=== PATIENT | male | born 1940 | race Caucasian/White ===

== ENCOUNTER 2017-09-18 19:45 | Inpatient (IN) ==
[2017-09-18] MEDS ORDERED: NS 1,000 ML IV ONE ×2 (19:59→22:06)
[2017-09-18] MEDS ORDERED: ACETAMINOPHEN 500 MG TABLET PO ONE (20:00)
[2017-09-18] MEDS: SALINE FLUSH 10ml SYRINGE IVF PRN (20:11)
--- NOTE | 2017-09-18 20:35 | Emergency Department Report ---
Male Urogenital HPI - General Chief complaint: Urogenital-Male <Alejandra Limon 09/18/17 20:36> Stated complaint: fever,frequent urination <Alejandra Limon 09/18/17 20: 36> Time Seen by Provider: 09/18/17 19:55 <Alejandra Limon 09/18/17 20:36> Source: patient, family <Alejandra Limon 09/18/17 20:36> Mode of arrival: ambulatory <Alejandra Limon 09/18/17 20:36> Limitations: no limitations <Alejandra Limon 09/18/17 20:36> - History of Present Illness HPI Narrative: Pt presents with a general complaint of not feeling well and body aches that started this afternoon. His temperature was about 100 and then went to 102 about an hour later. PT has not taken any medications for pain or fever. He denies cough, congestion, chest pain, nausea, vomiting, diarrhea, sore throat or INGRAM. 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 <Alejandra Limon 09/18/17 20:36> - Related Data Home Medications Medication Instructions Recorded Confirmed Tamsulosin HCl [Flomax] 0.4 mg PO DAILY #0 06/11/09/18/17 Arformoterol Neb [Brovana Neb] 15 mcg INH BID 10/27/16 09/18/17 Budesonide 1 dose INH DAILY 09/18/17 09/18/17 Umeclidinium Otto [Incruse 1 dose INH DAILY 09/18/17 09/18/17 Ellipta] <Alejandra Limon 09/18/17 20:36> Allergies Allergy/AdvReac Type Severity Reaction Status Date / Time No Known Drug Allergies Allergy Unknown Verified 09/18/17 20:35 <Alejandra Limon 09/18/17 20:36> Review of Systems All systems: reviewed and negative except as stated <Alejandra Limon 20:36> Constitutional: Reports: as per HPI <Alejandra Limon 09/18/17 20:36> Cardiovascular: Reports: as per HPI <Alejandra Limon 09/18/17 20:36> Respiratory: Reports: as per HPI <Alejandra Limon 09/18/17 20:36> Gastrointestinal: Reports: as per HPI <Alejandra Limon 09/18/17 20:36> Genitourinary: Reports: as per HPI <Alejandra Limon 09/18/17 20:36> Musculoskeletal: Reports: as per HPI <Alejandra Limon 09/18/17 20:36> Neurological: Reports: as per HPI <Alejandra Limon 09/18/17 20:36> [facility] Patient Stated Medical History Cataracts Yes Asthma Yes Chronic Obstructive Pulmonary Yes Disease (COPD) Gastroesophageal Reflux No Disease Hx Benign Prostatic Yes Hyperplasia Anesthesia Reactions No Clinic Medical History COPD (chronic obstructive pulmonary disease) (Acute Medical) Colon polyps (Acute Medical) <Alejandra Limon 09/18/17 20:36> Surgical History: 1. Total colonoscopy on 04/23/[address] Ivan at [facility] at [place], [place]. Postoperative diagnoses were positive family history of colon carcinoma, desire for screening for colon and rectal carcinoma and internal and external hemorrhoids. The father of this patient did have colon carcinoma. 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 <Alejandra Limon 20:36> Does patient use chewing tobacco?: No <Alejandra Limon 09/18/17 20:36> Physical Exam - Limitations Limitations: no limitations <Alejandra Limon 09/18/17 20:36> - General General appearance: alert, in no apparent distress <Alejandra Limon 09/18 20:36> - Normal Exams: Head:: Normocephalic without trauma <Alejandra Limon 09/18/17 20:36> Chest/Respirations:: Clear all ku, with good airflow <Alejandra Limon 09/18/17 20:36> Cardiovascular:: Regular rate and rhythm, without murmur or gallop, Pulses 2+ all extremities, capillary refill, <2 seconds all extremities <Alejandra Limon 09/18/17 20:36> Abdomen:: Bowel sounds positive, soft, non-tender, non-distended <Alejandra Limon 09/18/17 20:36> Musculoskeletal:: No tenderness, or deformity noted, good range of motion, all extremities <Alejandra Limon 09/18/17 20:36> Integumentary:: No rashes <Alejandra Limon 09/18/17 20:36> Neurological:: Patient is alert, and oriented, cranial nerves, motor/sensory/ cerebellar, exams w/o gross deficits, to observation <Alejandra Limon 20:36> Psychiatric:: Patient exhibits, appropriate attention, emotion and affect < Alejandra Limon 09/18/17 20:36> Course Vital Signs Temperature 102 F H 09/18/17 19:47 Pulse Rate 114 H 09/18/17 19:47 Respiratory Rate 18 09/18/17 19:47 Blood Pressure 124/74 09/18/17 19:47 Pulse Oximetry 94 09/18/17 19:47 Temperature 99.8 F 09/18/17 21:00 Pulse Rate 114 H 09/18/17 19:47 Respiratory Rate 18 09/18/17 19:47 Blood Pressure 124/74 09/18/17 19:47 Pulse Oximetry 94 09/18/17 19:47 <Alejandra Limon 09/18/17 20:36> Urogenital-Male - MDM Narrative Medical decision making narrative: Labs reviewed. Rocephin initiated. Pt has also received 2 L NS bolus. Pulse resolving however BP remains around 100 SBP even after fluids. Lactate normal. Given VS, in addition to UTI pt to be admitted for further care. Diagnosis and plan discussed with pt and family who voice understanding. <Alejandra Limon Joan - 09/18/17 23:11> Patient is discussed with Dr. Terrell Lowery, we will admit for UTI with sepsis, inpatient no telemetry <OwenKyle H - 09/18/17 22:59> - Differential Diagnosis Likely: urinary tract infection, urethritis, epididymitis, prostatitis, acute retention of urine <Marissa Limonlouise Franco - 09/18/17 20:36> - Lab Data Result diagrams: 09/18/17 20:12 09/18/17 20:12 <Alejandra Limon Joan - 09/18/17 20:36> Lab Results 09/18/17 09/18/17 09/18/17 Range/Units 20:12 20:12 20:12 WBC 18.4 H (4.5-11.0) T/MM3 RBC 4.69 (4.50-5.90) M/MM3 Hgb 15.2 (13.5-17.5) GM/DL Hct 45.6 (41-53) % MCV 97.2 (80-100) UM3 MCH 32.4 (26-34) UUG MCHC 33.3 (31-37) GM/DL RDW Std Deviation 47.3 (36.9-50.2) FL Plt Count 241 (130-400) T/MM3 MPV 10.3 (9.4-12.4) UM3 Immature Gran % (Auto) Not performed Neut % (Auto) Not performed Lymph % (Auto) Not performed Stephens % (Auto) Not performed Eos % (Auto) Not performed Baso % (Auto) Not performed Neut # (Auto) Not performed Lymph # (Auto) Not performed Stephens # (Auto) Not performed Eos # (Auto) Not performed Baso # (Auto) Not performed Abs Immat Gran (auto) Not performed Neutrophils % (Manual) 83.0 H (33-66) % Band Neutrophils % 3.0 (0-6) % Lymphocytes % (Manual) 6.0 L (23-45) % Monocytes % (Manual) 6.0 (0-9.0) % Eosinophils % (Manual) 1.0 (0-4) % Basophils % (Manual) 1.0 (0-2) % Neutrophils # (Manual) 15.3 H (1.8-7.7) T/MM3 Band Neutrophils # 0.6 T/MM3 Lymphocytes # (Manual) 1.1 (1-4.8) T/MM3 Monocytes # (Manual) 1.1 H (0-0.8) T/MM3 Eosinophils # (Manual) 0.2 (0-0.5) T/MM3 Basophils # (Manual) 0.2 (0-0.2) T/MM3 RBC Morph Comment Normal Turbidity < 20 (0-20) Sodium 142 (134-144) MEQ/L Potassium 3.9 (3.6-5) MEQ/L Chloride 107 (98-107) MEQ/L Carbon Dioxide 24 (22-30) MEQ/L Anion Gap 11 (5-15) meq/L BUN 13.0 (9-20) MG/DL Creatinine 0.8 (0.8-1.5) mg/dL GFR Calculation 94 BUN/Creatinine Ratio 16 (6-26) RATIO Glucose 108 (75-110) MG/DL Calculated Osmolality 274 (261-280) MOSM/KG Calcium 9.1 (8.4-10.2) MG/DL Total Bilirubin 0.50 (0.20-1.30) MG/DL Conjugated Bilirubin 0.00 (0.00-0.30) mg/dL Unconjugated Bilirubin 0.20 (0.00-1.1) mg/dL Icterus Index < 2 (0-7) AST 14 L (17-59) U/L ALT 13 (1-50) U/L Alkaline Phosphatase 98 (38-126) U/L Total Protein 7.2 (6.3-8.2) g/dL Albumin 4.1 (3.5-5.0) g/dL Globulin 3.1 (2.4-3.6) G/DL Albumin/Globulin Ratio 1.3 (1.1-2.2) RATIO Plasma Lactate 1.2 (0.6-2.2) MMOL/L Specimen Hemolysis < 15 (0-25) Ur Collection Type Urine, void-cc/notcc Urine Color Luna (YELLOW) Urine Clarity Cloudy Urine pH 8.5 A (5.0-8.0) Ur Specific [place] 1.020 (1.015-1.025) Urine Protein 2+ A (NEGATIVE) Urine Glucose (UA) Negative (NEGATIVE) Urine Ketones Negative (NEGATIVE) Urine Occult Blood 3+ A (NEGATIVE) Urine Nitrate Positive A (NEGATIVE) Urine Bilirubin Negative (NEGATIVE) Urine Urobilinogen 0.2 (NORMAL) EU/DL Ur Leukocyte Esterase 1+ A (NEGATIVE) Urine RBC 50-200 H (0-3) /HPF Urine WBC 10-20 H (0-5) /HPF Ur Squamous Epith Cells 0-5 Amorphous Sediment Many Urine Bacteria 3+ H (NEGATIVE) Ur Culture Indicated? Cult reflexed &setup 09/18/17 Range/Units 21:40 WBC (4.5-11.0) T/MM3 RBC (4.50-5.90) M/MM3 Hgb (13.5-17.5) GM/DL Hct (41-53) % MCV (80-100) UM3 MCH (26-34) UUG MCHC (31-37) GM/DL RDW Std Deviation (36.9-50.2) FL Plt Count (130-400) T/MM3 MPV (9.4-12.4) UM3 Immature Gran % (Auto) Neut % (Auto) Lymph % (Auto) Stephens % (Auto) Eos % (Auto) Baso % (Auto) Neut # (Auto) Lymph # (Auto) Stephens # (Auto) Eos # (Auto) Baso # (Auto) Abs Immat Gran (auto) Neutrophils % (Manual) (33-66) % Band Neutrophils % (0-6) % Lymphocytes % (Manual) (23-45) % Monocytes % (Manual) (0-9.0) % Eosinophils % (Manual) (0-4) % Basophils % (Manual) (0-2) % Neutrophils # (Manual) (1.8-7.7) T/MM3 Band Neutrophils # T/MM3 Lymphocytes # (Manual) (1-4.8) T/MM3 Monocytes # (Manual) (0-0.8) T/MM3 Eosinophils # (Manual) (0-0.5) T/MM3 Basophils # (Manual) (0-0.2) T/MM3 RBC Morph Comment Turbidity (0-20) Sodium (134-144) MEQ/L Potassium (3.6-5) MEQ/L Chloride (98-107) MEQ/L Carbon Dioxide (22-30) MEQ/L Anion Gap (5-15) meq/L BUN (9-20) MG/DL Creatinine (0.8-1.5) mg/dL GFR Calculation BUN/Creatinine Ratio (6-26) RATIO Glucose (75-110) MG/DL Calculated Osmolality (261-280) MOSM/KG Calcium (8.4-10.2) MG/DL Total Bilirubin (0.20-1.30) MG/DL Conjugated Bilirubin (0.00-0.30) mg/dL Unconjugated Bilirubin (0.00-1.1) mg/dL Icterus Index (0-7) AST (17-59) U/L ALT (1-50) U/L Alkaline Phosphatase (38-126) U/L Total Protein (6.3-8.2) g/dL Albumin (3.5-5.0) g/dL Globulin (2.4-3.6) G/DL Albumin/Globulin Ratio (1.1-2.2) RATIO Plasma Lactate 0.8 (0.6-2.2) MMOL/L Specimen Hemolysis (0-25) Ur Collection Type Urine Color (YELLOW) Urine Clarity Urine pH (5.0-8.0) Ur Specific [place] (1.015-1.025) Urine Protein (NEGATIVE) Urine Glucose (UA) (NEGATIVE) Urine Ketones (NEGATIVE) Urine Occult Blood (NEGATIVE) Urine Nitrate (NEGATIVE) Urine Bilirubin (NEGATIVE) Urine Urobilinogen (NORMAL) EU/DL Ur Leukocyte Esterase (NEGATIVE) Urine RBC (0-3) /HPF Urine WBC (0-5) /HPF Ur Squamous Epith Cells Amorphous Sediment Urine Bacteria (NEGATIVE) Ur Culture Indicated? <Alejandra Limon 09/18/17 20:36> Disposition Clinical Impression: UTI (urinary tract infection) Qualifiers: Urinary tract infection type: acute cystitis Hematuria presence: with hematuria Qualified Code(s): N30.01 - Acute cystitis with hematuria Sepsis Qualifiers: Sepsis type: sepsis due to unspecified organism Qualified Code(s): A41.9 - Sepsis, unspecified organism <Alejandra Limon 09/18/17 23:11> Disposition: 02 To [facility] [place] <Alejandra Limon 09/18/17 23:11> Condition: Improved <Alejandra Limon 09/18/17 23:11> Instructions: <Alejandra Limon 09/18/17 20:36> Prescriptions: No Action Arformoterol Neb [Brovana Neb] 15 mcg INH BID Budesonide 1 dose INH DAILY Umeclidinium Otto [Incruse Ellipta] 1 dose INH DAILY Tamsulosin HCl [Flomax] 0.4 mg PO DAILY #0 <Alejandra Limon 09/18/17 20:36> Referrals: Krish Gil II, MD [Primary Care Provider] - <Alejandra Limon 09/18/17 20:36> Forms: <Alejandra Limon 09/18/17 20:36> Time of Disposition: 23:11 <Alejandra Limon 09/18/17 23:11> - Seen By: midlevel and physician <Alejandra Limon 09/18/17 23:11> midlevel <Kyle Weaver 09/18/17 22:59>
[2017-09-18] MEDS ORDERED: CEFTRIAXONE (ER USE ONLY) 1 GM in NS 100 ML IV ONE (20:59)
[2017-09-18] MEDS ORDERED: ACETAMINOPHEN 500 MG TABLET PO PRN (23:50)
[2017-09-18] MEDS ORDERED: ALBUTEROL 2.5mg/3ml (0.083%) NEB AEROSOL PRN (23:50)
[2017-09-18] MEDS ORDERED: ONDANSETRON 4 MG/2 ML INJECTION IVP PRN (23:50)
[2017-09-18] MEDS ORDERED: CEFTRIAXONE 1 GM in NS 100 ML IV SCH (23:50)
[2017-09-18] MEDS ORDERED: MORPHINE SULFATE 4mg INJECTION IVP PRN (23:50)
[2017-09-19 00:05] VITALS: BMI 26.2
--- NOTE | 2017-09-19 00:55 | History & Physical Report ---
History of Present Illness Date: 09/19/17 Chief complaint: weak HPI: This is a 77 y/o male who underwent a cystoscopy this past Tuesday. 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 He was to see urology this week to discuss. The pateint had onset of feeling bad this past Tuesday morning HE was overall weak, and shaky. He developed a fever today with chills and sweats. Because of ongoing weakness he presented to the ED where his urine was found to be acutely infected. His blood pressure initially was in the 80's systolic. He did respond to ivf x 2 liters in the ED. At this time he is to be admitted for futher treatment of an ongoing UTI. Review of Systems Review of systems: no headache, no congestion, no ear pain, no sore throat, no dysphagia, no neck or jaw pain, no chest pain, no heart palpations, no abdomen pain, slight nausea without vomiting, no dysuria, troubles starting his stream, no stool changes, no focal neuro complaints, just generalized weakness. 12 point ROS otherwise negative except for outlined above. Past Medical History Medical History: Medical History COPD (chronic obstructive pulmonary disease) Colon polyps Surgical History: 1. Total colonoscopy on 04/[address] Ivan at [facility] at [place], [place]. Postoperative diagnoses were positive family history of colon carcinoma, desire for screening for colon and rectal carcinoma and internal and external hemorrhoids. The father of this patient did have colon carcinoma. Family History: Family History Father Cancer of colon Family History: As Above - Social History Smoking status: Current every day smoker Substance use type: does not use Alcohol intake frequency: does not drink Housing: house Household members: spouse, family Current occupational status: employed Current occupational exposures/hazards: Yes Does patient use chewing tobacco?: No Current residence: Apartment/Private Home Medications Home Medications Medication Instructions Recorded Confirmed Type Tamsulosin HCl [Flomax] 0.4 mg PO DAILY #0 06/11/08 09/18/17 History Arformoterol Neb [Brovana Neb] 15 mcg INH BID 10/27/16 09/18/17 History Budesonide 1 dose INH DAILY 09/18/17 09/18/17 History Umeclidinium [place] [Incruse 1 dose INH DAILY 09/18/17 09/18/17 History Ellipta] Allergies Allergy/AdvReac Type Severity Reaction Status Date / Time No Known Drug Allergies Allergy Unknown Verified 09/18/17 20:35 Exam Vital Signs: Temperature 98.4 F 09/18/17 23:18 Pulse Rate 77 09/18/17 23:15 Respiratory Rate 15 09/18/17 23:15 Blood Pressure 97/52 09/18/17 23:15 Pulse Oximetry 97 09/18/17 23:15 Telemetry Rhythm: Sinus Rhythm Height/Weight/BMI: Height 1.88 m Weight 92.5 kg Body Mass Index 26.2 - Constitutional Present: mild distress, well nourished, well developed, cooperative - Routine HEENT Exam Head: Present: normocephalic, atraumatic Eye: Present: EOMI ENT: Present: mucous membranes dry - Routine Neck Exam Present: supple, full ROM - Routine Respiratory Exam Comments: diminished breath sounds. - Routine Cardiovascular Exam Present: RRR, no murmur - Routine Abdominal Exam Present: soft, normoactive bowel sounds, non distended, non tender - Routine Extremities Exam Present: non tender, full ROM - Routine Back/Spine/Pelvis Exam Back/Spine: Present: full ROM - Routine Skin Exam Present: intact - Routine Neurological Exam Present: alert, oriented X3, moving all extremities, normal tone, vision grossly intact, hearing grossly intact, normal speech. Absent: motor deficit - Routine Psychiatric Exam Present: normal affect, normal thought process Results - Labs CBC & Chem 7: 09/18/17 20:12 09/18/17 20:12 Labs: results reviewed and pertinent will be discussed below Assessment and Plan (1) UTI (urinary tract infection) Current visit: Yes Status: Acute (2) Sepsis Current visit: Yes Status: Acute (3) COPD (chronic obstructive pulmonary disease) Current visit: Yes Status: Acute (4) BPH (benign prostatic hyperplasia) Current visit: Yes Status: Acute (5) Tobacco abuse Current visit: Yes Status: Acute Assessment and Plan: 1. UTI acute POA: s/p instrumentation. rocephin, cx sent, adjust as indicated. Currently no obvious indication to image the bladder/abdomen. If not respond to therapy ,consider imaging to rule out obstructive process 2. sepsis acute POA: fluids, antibiotics, repeat markers in the am. 3. COPD chronic POA: duoneb, albuterol prn, not exacerbated 4. 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 DVT pxp: SCD, lovenox 6. gastric ppx; PPI. 7. BPH chronic POA: continue flomax DVT Prophylaxis: SCD's, SQ Heparin GI Prophylaxis: Protonix Resuscitation Status: Full Code - Time spent with patient Time with patient PN: 30 minutes - Physician Narrative Physician: Marisol Estes MD Narrative: Date: 09/19/17 Time: 50 Hospital Course Summary Disclaimer: The visit summary below is not to be considered part of the above Progress Note.
[2017-09-19] MEDS: NS 1,000 ML IV SCH ×3 (01:07→21:21)
[2017-09-19] MEDS: ALBUTEROL/IPRATROPIUM 2.5mg-0.5mg/3ml NEB AEROSOL SCH ×4 (03:46→20:48)
[2017-09-19] MEDS: TAMSULOSIN 0.4 MG CAPSULE PO SCH (09:59)
[2017-09-19] MEDS: POLYETHYL GLYCOL 3350 17gm PACKET PO SCH (09:59)
[2017-09-19] MEDS: ENOXAPARIN 40 MG/0.4 ML INJECTION SQ SCH (09:59)
--- NOTE | 2017-09-19 18:47 | History & Physical Report ---
History of Present Illness Date: 09/19/17 HPI: presented to the ED due to being weak and having fever and chills since Tuesday. Pt had a cystoscopy on Tuesday for intermittent hematuria that had been going on for 1 year. During the procedure a bladder mass was found and pt was asked to come back in 1 week for biopsies. But before pt could go back for the second procedure, he developed these sx's and came into ED. Pt reports he's had dysuria for one year as well but denies any discharge or increased frequency. Denies any previous episodes of UTI. Denies any decrease in urinary output. For complete H&P, please review prior note for ROS, PMH, SH, FH. Past Medical History Medical History: Medical History COPD (chronic obstructive pulmonary disease) Colon polyps Surgical History: 1. Total colonoscopy on 04/[address] Ivan at [facility] at [place], [place]. Postoperative diagnoses were positive family history of colon carcinoma, desire for screening for colon and rectal carcinoma and internal and external hemorrhoids. The father of this patient did have colon carcinoma. Family History: Family History Father Cancer of colon Family History: As Above - Social History Smoking status: Current every day smoker Does patient use chewing tobacco?: No Current residence: Apartment/Private Home Medications Home Medications Medication Instructions Recorded Confirmed Type Tamsulosin HCl [Flomax] 0.4 mg PO DAILY #0 06/11/08 09/18/17 History Arformoterol Neb [Brovana Neb] 15 mcg INH BID 10/27/16 09/18/17 History Budesonide 1 dose INH DAILY 09/18/17 09/18/17 History Umeclidinium [place] [Incruse 1 dose INH DAILY 09/18/17 09/18/17 History Ellipta] Allergies Allergy/AdvReac Type Severity Reaction Status Date / Time No Known Drug Allergies Allergy Unknown Verified 09/18/17 20:35 Exam Vital Signs: Temperature 96.6 F L 09/19/17 17:01 Pulse Rate 73 09/19/17 15:53 Respiratory Rate 16 09/19/17 15:53 Blood Pressure 109/60 09/19/17 15:53 Pulse Oximetry 100 09/19/17 15:53 Height/Weight/BMI: Height 6 ft 2 in Weight 91.5 kg Body Mass Index 26.2 - Constitutional Present: no acute distress - Routine HEENT Exam Head: Present: normocephalic, atraumatic Eye: Present: EOMI - Routine Respiratory Exam Present: CTA bilaterally. Absent: stridor, wheezes - Routine Cardiovascular Exam Present: RRR, no murmur - Routine Abdominal Exam Present: soft, non distended, non tender - Routine Skin Exam Present: intact, dry. Absent: cyanosis, erythema - Routine Neurological Exam Present: alert, oriented X3 - Routine Psychiatric Exam Present: normal affect, normal thought process Results - Labs CBC & Chem 7: 09/19/17 02:34 09/19/17 02:34 Assessment and Plan (1) UTI (urinary tract infection) Current visit: Yes Status: Acute (2) Sepsis Current visit: Yes Status: Acute (3) COPD (chronic obstructive pulmonary disease) Current visit: Yes Status: Acute (4) BPH (benign prostatic hyperplasia) Current visit: Yes Status: Acute (5) Tobacco abuse Current visit: Yes Status: Acute Assessment and Plan: Severe sepsis 2/2 complicated UTI -Much improved, no concern for obstruction at this point -Cont. 1g Rocephin, await cx's -Discussed case with --recommended keeping inpt until procedure on , will need to be NPO -Will check PVR COPD -Stable, cont. home inhalers BPH -Cont. home flomax Ppx -Lovenox (hold for procedure on 09/20) - Physician Narrative Narrative: Date: 09/19/17 Time: 1839 Hospital Course Summary Disclaimer: The visit summary below is not to be considered part of the above Progress Note.
[2017-09-19] MEDS ORDERED: CEFTRIAXONE 1 G in NS 100 ML IV SCH (21:00)
[2017-09-20] MEDS: ALBUTEROL/IPRATROPIUM 2.5mg-0.5mg/3ml NEB AEROSOL SCH ×5 (04:37→22:15)
[2017-09-20] MEDS: NS 1,000 ML IV SCH ×2 (08:22→21:09)
[2017-09-20] MEDS: ENOXAPARIN 40 MG/0.4 ML INJECTION SQ SCH (09:31)
[2017-09-20] MEDS: TAMSULOSIN 0.4 MG CAPSULE PO SCH (09:31)
[2017-09-20] MEDS: POLYETHYL GLYCOL 3350 17gm PACKET PO SCH (09:31)
--- NOTE | 2017-09-20 17:51 | Progress Note ---
- Date 09/20/17 Subjective: Pt reports doing better this am. Urinary sx's have improved, urine has had no gross hematuria. Pt had high post void residuals overnight and so a catheter was placed. Denies any n/v/d, f/c, cp or sob. Objective Vital signs: Temperature 98.3 F 09/20/17 17:35 Pulse Rate 79 09/20/17 17:35 Respiratory Rate 16 09/20/17 17:35 Blood Pressure 120/67 09/20/17 17:35 Pulse Oximetry 95 09/20/17 17:35 Height/Weight/BMI: Height 6 ft 2 in Weight 91.5 kg Body Mass Index 26.2 - Constitutional Present: no acute distress - Routine HEENT Exam Head: Present: normocephalic, atraumatic ENT: Present: mucous membranes moist - Routine Respiratory Exam Present: CTA bilaterally. Absent: wheezes, crackles - Routine Cardiovascular Exam Present: RRR, no murmur - Routine Abdominal Exam Present: soft, non distended, non tender - Routine Extremities Exam Present: no edema. Absent: cyanosis, clubbing - Routine Skin Exam Present: intact, dry. Absent: cyanosis - Routine Neurological Exam Present: alert, oriented X3 - Routine Psychiatric Exam Present: normal affect, normal thought process Results - Labs CBC & Chem 7: 09/20/17 10:06 09/20/17 10:06 Assessment and Plan (1) UTI (urinary tract infection) Current visit: Yes Status: Acute (2) Sepsis Current visit: Yes Status: Acute (3) COPD (chronic obstructive pulmonary disease) Current visit: Yes Status: Acute (4) BPH (benign prostatic hyperplasia) Current visit: Yes Status: Acute (5) Tobacco abuse Current visit: Yes Status: Acute Assessment and Plan: Severe sepsis 2/2 complicated UTI -Much improved, possibly partial obstruction but now has sands -Cx's grew out E. faecalis and psuedomonas-->Start Cipro + Ampicillin based on sensitivities -Discussed case with --plan for procedure tomorrow am -NPO at midnight Bladder Mass -Found last week during cystoscopy for hematuria -Procedure planned tomorrow Hematuria -Intermittent gross hematuria -Concern for malignancy, plan for procedure tomorrow COPD -Stable, cont. home inhalers BPH -Cont. home flomax Ppx -SCDs - Physician Narrative Narrative: Date: 09/20/17 Time: 1745 Hospital Course Summary Disclaimer: The visit summary below is not to be considered part of the above Progress Note.
[2017-09-20] MEDS: AMPICILLIN 2 GM in NS 100 ML IV SCH (18:02)
[2017-09-20] MEDS: CIPROFLOXACIN 500 MG TABLET PO SCH (22:08)
[2017-09-21] MEDS: AMPICILLIN 2 GM in NS 100 ML IV SCH ×5 (00:28→23:27)
[2017-09-21] MEDS: ALBUTEROL/IPRATROPIUM 2.5mg-0.5mg/3ml NEB AEROSOL SCH ×4 (04:49→20:47)
[2017-09-21] MEDS ORDERED: ALBUTEROL/IPRATROPIUM 2.5mg-0.5mg/3ml NEB AEROSOL PRN (08:48)
[2017-09-21] MEDS: NS 1,000 ML IV SCH ×2 (08:50→12:20)
--- NOTE | 2017-09-21 08:55 | Anesthesia Preoperative Report ---
Anesthesia Preoperative Record - Date and Time Date: 09/21/17 Preoperative Diagnosis: uti,sepsis NPO Since Date: 09/20/17 NPO Since Time: 23:00 Allergies/Adverse Reactions: Allergies Allergy/AdvReac Type Severity Reaction Status Date / Time No Known Drug Allergies Allergy Unknown Verified 09/18/17 20:35 - Vital Signs Vital Signs: Temperature 98.3 F 09/21/17 08:30 Pulse Rate 74 09/21/17 08:30 Respiratory Rate 18 09/21/17 08:30 Blood Pressure 117/62 09/21/17 08:30 Pulse Oximetry 95 09/21/17 08:30 Height and Weight: Height 6 ft 2 in Weight 9.3 kg Body Mass Index 26.2 - Medications Inpatient Medications: Current Medications Acetaminophen (Tylenol) 500 mg PO Q5H PRN PRN Reason: Discomfort Hydrocodone Bitart/Acetaminophen ([place] 5/325) 1 tab PO Q6H PRN PRN Reason: Pain Albuterol Sulfate (Proventil Neb (0.083%)) 2.5 mg AEROSOL Q4H PRN Albuterol/Ipratropium (Duoneb) 3 ml AEROSOL Q6H [facility] Last Admin: 09/21/17 04:49 Dose: 3 ml Albuterol/Ipratropium (Duoneb) 3 ml AEROSOL O PRN Ciprofloxacin (Cipro 500 Mg) 500 mg PO Q12HR [facility] Last Admin: 09/20/17 22:08 Dose: 500 mg Sodium Chloride (Normal Saline) 1,000 mls @ 100 mls/hr IV .Q10H [facility] Last Infusion: 09/21/17 08:25 Dose: 100 mls/hr Ampicillin Sodium 2 gm/ Sodium (Chloride) 100 mls @ 200 mls/hr IV Q6H [facility] Last Infusion: 09/21/17 07:02 Dose: Infused Morphine Sulfate (Morphine Sulfate Inj) 1 - 2 mg IVP Q2H PRN PRN Reason: Pain Polyethylene Glycol (Miralax) 17 gm PO DAILY [facility] Last Admin: 09/20/17 09:31 Dose: 17 gm Sodium Chloride (Iv Flush) 10 - 80 ml IVF PRN PRN PRN Reason: Flushing Last Admin: 09/18/17 20:11 Dose: 10 ml Tamsulosin HCl (Flomax) 0.4 mg PO DAILY [facility] Last Admin: 09/20/17 09:31 Dose: 0.4 mg Home Medications: Home Medications Medication Instructions Recorded Confirmed Type Tamsulosin HCl [Flomax] 0.4 mg PO DAILY #0 06/11/08 09/18/17 History Arformoterol Neb [Brovana Neb] 15 mcg INH BID 10/27/16 09/18/17 History Budesonide 1 dose INH DAILY 09/18/17 09/18/17 History Umeclidinium [place] [Incruse 1 dose INH DAILY 09/18/17 09/18/17 History Ellipta] Is Patient on Beta Ganesh?: No - Medical History Respiratory: Reports: Asthma, Chronic Obstructive Pulmonary Disease (COPD) DENIES: Sleep Apnea Cardiovascular: DENIES: Hypertension Gastrointestional: DENIES: Gastroesophageal Reflux Disease Other History: Reports: Cancer (SKIN) DENIES: Anesthesia Reactions - Surgical History HEENT Surgeries: Reports: Eye Surgery (COREY. CAT. EXT.) GI Surgery/Treatments: Reports: Appendectomy Musculoskeletal Surgery/Tx: Reports: Total Hip Replacement (LEFT) Anesthesia Reactions: None Hx Family Anesthesia Reaction: No History of Motion Sickness: No - Social History Smoking Status: Current every day smoker Hx Chewing Tobacco Use: No Substance Use Type: does not use Alcohol Intake: current Alcohol Intake Frequency: does not drink - Pertinent Findings Laboratory: CBC and BMP 09/21/17 04:19 09/21/17 04:19 BMP 09/20/17 09/21/17 10:06 04:19 Sodium 145 H 145 H Potassium 3.9 3.8 Chloride 110 H 110 H Carbon Dioxide 27 26 BUN 10.0 9.0 Creatinine 0.7 L 0.7 L Glucose 97 103 Calcium 8.4 8.3 L Liver Function 09/20/17 09/21/17 Range/Units 10:06 04:19 Albumin 3.5 3.1 L (3.5-5.0) g/dL EKG: Sinus Rhythm - Physical Exam Respiratory Exam: Present: lungs clear, bilateral breath sounds equal Cardiovascular Exam: Present: regular rate and rhythm - Airway Assessment Mallampati Score: II TMD: 3 Fingerbreadths Neck Extension: good Teeth: upper dentures, partial lower dentures Overall Assessment: no airway concerns - ASA ASA Score: 3 - Plan Anesthesia: General TIVA, General Inhalation Gases - Discussion Discussion: Discussed risks/options/alternatives of anesthesia and questions answered. Patient consents. Nursing pain assessment noted. Present for Discussion: spouse, children (daughter) Attestation Statement: Prior to the delivery of any anesthetic medication, I examined the patient, developed the plan, obtained the patient's consent and discussed the risk and benefits of the procedure with the patient/guardian. - Additional Information Seen by Anesthesia: Yes
[2017-09-21] MEDS ORDERED: PROPOFOL 20 ML ONE (09:11)
[2017-09-21] MEDS ORDERED: FentaNYL 250 MCG/5 ML INJECTION ONE (09:13)
[2017-09-21] MEDS ORDERED: MIDAZOLAM 2mg/2ml INJECTION ONE (09:13)
[2017-09-21] MEDS ORDERED: ROCURONIUM 50 MG/5 ML INJECTION IVP ONE (09:38)
[2017-09-21] MEDS ORDERED: SUGAMMADEX 200mg/2ml INJECTION IVP ONE (09:38)
--- NOTE | 2017-09-21 10:39 | Anesthesia Postoperative Note ---
- Date and Time Date: 09/21/17 Time: 10:39 - Status Patient Participated in Evaluation: Patient Participated in Person Vital Signs: Temperature 98.3 F 09/21/17 08:30 Pulse Rate 74 09/21/17 08:30 Respiratory Rate 19 09/21/17 08:54 Blood Pressure 117/62 09/21/17 08:30 Pulse Oximetry 95 09/21/17 08:54 Respiratory Function: Airway Patent Cardiovascular Function: Regular Pulse EKG: Sinus Rhythm Mental Status: Alert and Oriented Pain Intensity: 2 Hydration: IV Infusing Complications During Recover: None Apparent - Follow-Up Instructions Instructions: Per Surgeon
[2017-09-21] MEDS: CIPROFLOXACIN 500 MG TABLET PO SCH ×2 (11:27→20:33)
[2017-09-21] MEDS: HYDROCODONE/APAP 5mg/325mg TABLET PO PRN ×2 (12:19→20:01)
[2017-09-21] MEDS: TAMSULOSIN 0.4 MG CAPSULE PO SCH (12:19)
[2017-09-21] MEDS: POLYETHYL GLYCOL 3350 17gm PACKET PO SCH ×2 (14:12→14:13)
--- NOTE | 2017-09-21 14:36 | Operative Note ---
DATE OF PROCEDURE September 21, 2017 PREOPERATIVE DIAGNOSIS Bladder tumor. POSTOPERATIVE DIAGNOSIS Bladder tumor. PROCEDURE PERFORMED TURBT of a large bladder tumor bigger than 5 cm. PRIMARY SURGEON Yash Spaulding MD COMPLICATIONS None. DRAINS 24-Serbian 3-way hematuria catheter. 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 The tumor was bigger than 5 cm. INDICATION FOR THE PROCEDURE This is a 77-year-old male who was seen in the Urology Clinic for gross hematuria. His workup revealed a large tumor of the bladder dome. After discussion of the options, he elected to proceed to the OR for a TURBT. Please note that the patient was admitted to the hospital two days ago for a UTI prior to this surgery and he has been on culture-specific antibiotic under the hospitalist service. DESCRIPTION OF THE PROCEDURE The patient was identified in the preoperative holding area. The procedure was explained to him. He agreed to proceed. He was taken back to the operating room where he was placed supine on the operating table. General anesthesia was induced. He was then placed in dorsal lithotomy position. His genitalia were prepped and draped in the usual fashion. At this time a formal time-out was done. All the persons in the room were in agreement. We began the procedure by introducing a rigid resectoscope inside the bladder. The patient had an enlarged prostate. The bladder was severely trabeculated and had multiple diverticula. The two UO's were orthotopic in position. At the dome of the bladder the patient had a large papillary tumor that was, in part, necrotic. This tumor was larger than 5 cm. I inspected the rest of the bladder including the bladder diverticula and there were no additional tumors identified. Using a bipolar resecting loop, I resected the tumor completely, making sure that I took deep bites of the muscle. This was somewhat difficult due to the location of the tumor on the anterior wall and dome of the bladder. Once the resection was complete, I removed all the tumor chips and sent them off for pathology. Careful hemostasis was achieved. I then placed a 24-Serbian 3 -way hematuria catheter and started CBI with return of clear yellow urine. DISPOSITION The patient will be transferred back to his inpatient room. If his urine remains clear on CBI, he can be discharged home tomorrow with a Shannon catheter. WOLF
--- NOTE | 2017-09-21 16:24 | Progress Note ---
- Date 09/21/17 Subjective: Terry is seen today in follow up. He is on the phone during my visit, so I was unable to visit with him. Chart reviewed for collateral information. Objective Vital signs: Temperature 97.0 F 09/21/17 15:00 Pulse Rate 69 09/21/17 15:00 Respiratory Rate 18 09/21/17 15:58 Blood Pressure 121/65 09/21/17 15:00 Pulse Oximetry 93 09/21/17 15:00 Height/Weight/BMI: Height 1.88 m Weight 9.3 kg Body Mass Index 26.2 - Constitutional Present: no acute distress, average body habitus, cooperative - Routine HEENT Exam Head: Present: normocephalic, atraumatic Eye: Present: EOMI, PERRL ENT: Present: mucous membranes moist - Routine Respiratory Exam Present: CTA bilaterally. Absent: rales, rhonchi, crackles - Routine Cardiovascular Exam Present: RRR, S1, S2, no murmur - Routine Abdominal Exam Present: soft, normoactive bowel sounds, non distended, non tender - Routine Exam Comments: Shannon: cloudy yellow urine. - Routine Extremities Exam Present: no edema, non tender - Routine Musculoskeletal Exam Musculoskeletal: Present: normal strength - Routine Skin Exam Present: intact, dry, warm - Routine Neurological Exam Present: alert, oriented X3, moving all extremities - Routine Psychiatric Exam Present: normal affect, normal thought process, cooperative Results - Labs CBC & Chem 7: 09/21/17 04:19 09/21/17 04:19 Microbiology Results: Urine cx: VSE/PSA Assessment and Plan (1) UTI (urinary tract infection) Current visit: Yes Status: Acute (2) Sepsis Current visit: Yes Status: Acute (3) COPD (chronic obstructive pulmonary disease) Current visit: Yes Status: Acute (4) BPH (benign prostatic hyperplasia) Current visit: Yes Status: Acute (5) Tobacco abuse Current visit: Yes Status: Acute Assessment and Plan: 09/21/17 Severe sepsis 2/2 complicated UTI -Cx's grew out E. faecalis and psuedomonas Bladder Mass s/p cystoscopy- bx pending. Hematuria Urine clear today COPD -Stable, cont. home inhalers BPH -Cont. home flomax Ppx -SCDs Doing well post op. Possible dismissal with Shannon in tomorrow per urology notes. Repeat labs in AM for stability. DVT Prophylaxis: SCD's Resuscitation Status: Full Code - Physician Narrative Narrative: Date: 09/21/17 Time: 1635 Pt doing well this am, urine slightly loretta. Reports some burning in urethra, denies any f/c. Cont. abx regimen based on cx's, s/p bladder mass removal/ biopsy. Plan on discharge tomorrow with follow up with urology. Hospital Course Summary Disclaimer: The visit summary below is not to be considered part of the above Progress Note. Hospital Course: 09/21/17 Doing well post op. Possible dismissal with Shannon in tomorrow per urology notes. Repeat labs in AM for stability.
[2017-09-22] MEDS: ALBUTEROL/IPRATROPIUM 2.5mg-0.5mg/3ml NEB AEROSOL SCH ×2 (03:40→09:52)
[2017-09-22 05:12] VITALS: PULSE 76
[2017-09-22] MEDS: AMPICILLIN 2 GM in NS 100 ML IV SCH ×2 (05:36→12:30)
[2017-09-22] MEDS: SALINE FLUSH 10ml SYRINGE IVF PRN (05:37)
[2017-09-22] MEDS: HYDROCODONE/APAP 5mg/325mg TABLET PO PRN (08:53)
[2017-09-22] MEDS: POLYETHYL GLYCOL 3350 17gm PACKET PO SCH (08:53)
[2017-09-22] MEDS: CIPROFLOXACIN 500 MG TABLET PO SCH (08:53)
[2017-09-22] MEDS: TAMSULOSIN 0.4 MG CAPSULE PO SCH (08:53)
[2017-09-22 09:59] VITALS: O2SAT 95
--- NOTE | 2017-09-22 10:31 | Discharge Summary ---
Discharge Information Date of admission: 09/18/17 22:57 Anticipated date of discharge: 09/22/17 Attending Physician: Andria Adams MD Primary care physician: Krish Gil II, MD - Discharge Diagnosis (1) UTI (urinary tract infection) Status: Acute (2) Sepsis Status: Acute (3) COPD (chronic obstructive pulmonary disease) Status: Acute (4) BPH (benign prostatic hyperplasia) Status: Acute (5) Tobacco abuse Status: Acute Bladder Tumor s/p Cystoscopy and resection TUBPR Complicated UTI- VSE/PSA - Procedures Procedures: DATE OF PROCEDURE September 21, 2017 PREOPERATIVE DIAGNOSIS Bladder tumor. POSTOPERATIVE DIAGNOSIS Bladder tumor. PROCEDURE PERFORMED TURBT of a large bladder tumor bigger than 5 cm. PRIMARY SURGEON Yash Spaulding MD COMPLICATIONS None. - Laboratory Labs: 09/22/17 04:01 09/22/17 04:01 - Microbiology Microbiology 09/18/17 21:40 Peripheral/Iv Start Blood Culture - Preliminary No Growth After 3 Days 09/18/17 20:10 Peripheral/Iv Start Blood Culture - Preliminary No Growth After 3 Days 09/18/17 20:12 Urine, Voided (Cc/notcc) Urine Culture - Final Enterococcus faecalis Pseudomonas aeruginosa - Radiology Radiology: None - Pathology Pending History of Present Illness HPI: presented to the ED due to being weak and having fever and chills since Tuesday. Pt had a cystoscopy on Tuesday for intermittent hematuria that had been going on for 1 year. During the procedure a bladder mass was found and pt was asked to come back in 1 week for biopsies. But before pt could go back for the second procedure, he developed these sx's and came into ED. Pt reports he's had dysuria for one year as well but denies any discharge or increased frequency. Denies any previous episodes of UTI. Denies any decrease in urinary output. Patient was found to have significant UTI, and was admitted for further evaluation and treatment. Urology was consulted for further assistance. Objective Vital signs: Temperature 98.4 F 09/22/17 04:00 Pulse Rate 76 09/22/17 04:00 Respiratory Rate 18 09/22/17 09:53 Blood Pressure 108/62 09/22/17 04:00 Pulse Oximetry 95 09/22/17 09:53 Height/Weight/BMI: Height 1.88 m Weight 9.3 kg Body Mass Index 26.2 - Constitutional Present: no acute distress, well nourished, well developed, average body habitus , cooperative - Routine HEENT Exam Head: Present: normocephalic, atraumatic Eye: Present: EOMI, PERRL, normal accommodation ENT: Present: mucous membranes moist - Routine Respiratory Exam Present: CTA bilaterally. Absent: rales, rhonchi, crackles - Routine Cardiovascular Exam Present: RRR, S1, S2, no murmur - Routine Abdominal Exam Present: soft, non tender, distended (Mildly distended, quiet BS.) - Routine Exam Comments: Shannon cath in place with CBI. Clear, yellow urine. - Routine Extremities Exam Present: no edema, non tender - Routine Back/Spine/Pelvis Exam Back/Spine: Present: full ROM - Routine Musculoskeletal Exam Musculoskeletal: Present: normal strength, no joint swelling - Routine Skin Exam Present: intact, dry, warm - Routine Neurological Exam Present: alert, oriented X3, moving all extremities - Routine Psychiatric Exam Present: normal affect, cooperative, good insight, good judgment Hospital Course This is a general summary of the patient's hospital course. For more details refer to the complete medical record. Hospital course: Patient was admitted and urine cultures were obtained. Urine cultures + for VSE/PSA. He was started on appropriate antibiotics. He underwent TUBPR on 09/21/17, and did well post-operatively. He will be dismissed to home with further antibiotics and Shannon. He will follow up with Dr. Spaulding for pathology and further plan of care. Time spent with patient: 25 - 35 minutes Resuscitation Status: Full Code Discharge Plan - Discharge Disposition Discharge Date: 09/22/17 Disposition: Discharged Home, Self-Care *Condition: Improved Reason For Visit (Visit label in EMR): uti,sepsis - Discharge Medications *Discharge Medications: New Amoxicillin 1 tab PO Q12H #14 tab Ciprofloxacin [Cipro 500 mg] 500 mg PO Q12HR #14 tab Hydrocodone/APAP 5/325 [[place] 5/325] 1 tab PO Q6H PRN #15 tab PRN Reason: Pain Acetaminophen [Tylenol] 500 mg PO Q5H PRN tab PRN Reason: Discomfort Continue Arformoterol Neb [Brovana Neb] 15 mcg INH BID Budesonide 1 dose INH DAILY Umeclidinium [place] [Incruse Ellipta] 1 dose INH DAILY Tamsulosin HCl [Flomax] 0.4 mg PO DAILY #0 - Discharge Packet/Instructions *Diet: Diet of choice *Activity: No driving on narcotics. No heavy lifting > 10 pounds until OK with urology *Pain Management/Treatment: Tylenol or [place] for pain *Wound Care: N/A Additional Instructions: Continue Shannon catheter. Call Dr. Spaulding if excessive bleeding or if Shannon is not draining well. *Expected Signs/Symptoms: Some mild blood in urine. Discomfort. *Notify Physician if: fever over 101. Large amount of blood in urine. Increasing pain. Urine is not draining. *During Business Hours Contact: Dr. Gil *After Business Hours Contact: score caller through [facility]. *Pending Lab/Results: Follow up w/your PCP - Referrals/Follow Up *Referrals/Follow Up: Krish Gil II, MD [Primary Care Provider] - 1 Week (APPOINTMENT ON 09/28 10 :15.) Yash Spaulding MD [Physician] - (As directed. ) - Patient Handouts Patient Handouts: Urinary Tract Infection in Men (GEN), Shannon Catheter Placement and Care (DC), Sepsis (GEN) - Dismissal Complete Discharge Instructions are:: Incomplete Physician Narrative - Narrative Attestation Narrative: Date: 09/22/17 Time: 1504 Pt doing well on day of discharge and will be discharged with 10 total days of abx treatment. Pt had fairly clear urine today with slightly reddish tint. Plan is to follow up with office next week.
[2017-09-22 11:44] VITALS: BP 95/60; RESP 16; TEMP 97.7
== END 2017-09-22 14:20 | disposition home or self-care (01) | DRG 854 ==
LOC: ED 19:45 → MED 22:57
PROVIDERS: ADMIT Emergency Medicine; ATTEND Internal Medicine